=== PATIENT | female | born 1980 | race Caucasian/White ===

== ENCOUNTER 2025-01-29 12:40 | Emergency (ER) | payer SELFPAY ==
[~2025-01-29 12:40] MED LIST: Iopamidol 370 76% 100 ML VIAL ONE
[2025-01-29] MEDS ORDERED: diphenhydrAMINE 50 MG/ML VIAL ONE (13:21)
[2025-01-29] MEDS ORDERED: Metoclopramide HCl 10 MG (2 mL) VIAL ONE (13:22)
[2025-01-29 13:25] LABS: #Basophils 0.06 10x3/uL (0.0-0.2); #Eosinophils 0.14 10x3/uL (0.0-0.5); #Monocytes 0.45 10x3/uL (0.0-1.1); #Neutrophils 6.22 10x3/uL (1.5-8.4); %Basophils 0.6 % (0.0-2.0); %Eosinophils 1.4 % (0.0-6.0); %Lymphocytes 28.5 % (18.0-47.0); %Monocytes 4.7 % (0.0-10.0); %Neutrophils 64.4 % (40.0-75.0); Hematocrit 42.2 % (34.9-44.5); Hemoglobin 14.5 g/dL (12.0-15.5); Mean Corpuscular Hemoglobin 30.3 pg (27.0-33.0); Mean Corpuscular Volume 88.3 fL (81.6-98.3); Platelet Count 247 10x3/uL (150-450); Red Blood Cell (RBC) Count 4.78 10x6/uL (3.90-5.03); White Blood Cell (WBC) Count 9.66 10x3/uL (3.5-10.5)
[2025-01-29 13:36] LABS: BHCG - Serum Negative (NEGATIVE); Pregs Control Background? CLEAR/WHITE (CLR/WHITE); Pregs Control Bar Appear? YES (CONTROL BAR)
[2025-01-29 13:39] LABS: INR-International Normal Ratio 0.9; PTT 25.5 sec (22.0-33.0); Prothrombin Time 10.0 sec (9.5-12.1)
[2025-01-29 13:43] LABS: ALT (SGPT) 63 U/L (Less than 34); AST (SGOT) 57 U/L (11-34); Albumin 4.5 g/dL (3.1-4.5); Alkaline Phosphatase 50 U/L (40-110); Anion Gap 9 mmol/L (10-20); BUN (Urea Nitrogen) 10 mg/dL (7.0-18.7); Bilirubin, Total 0.5 mg/dL (0.3-1.2); Calc. Creatinine Clearance 0 mL/min (70-130); Calcium 9.5 mg/dL (7.8-10.44); Carbon Dioxide 21 mmol/L (22-29); Chloride 107 mmol/L (98-107); Globulin 2.5 g/dL (2.4-3.5); Glucose 136 mg/dL (70-105); Potassium 3.7 mmol/L (3.5-5.1); Sodium 133 mmol/L (136-145)
[2025-01-29 13:49] LABS: Troponin I Less than 0.010 ng/mL (< 0.028)
== END 2025-01-29 14:46 | disposition home or self-care (01) ==
LOC: CSHERS 12:40
DX: G43.909 Migraine, unspecified, not intractable, without status migrainosus (principal); R29.700 NIHSS score 0
CPT/HCPCS: 36415; 36416; 70450; 70496; 70498; 71045; 80053; 84484; 84703; 85025; 85610; 85730; 93005; 94760; 96374; 96375; J1200; J2765; Q9967